=== PATIENT | female | born 1995 | race Two or more races ===

== ENCOUNTER 2016-11-22 05:27 | Emergency (ER) | payer OTHER ==
[2016-11-22 06:22] LABS: APPEARANCE,URINE CLOUDY; BILIRUBIN,URINE NEGATIVE (NEGATIVE); GLUCOSE, URINE NEGATIVE (NEGATIVE); KETONES,URINE NEGATIVE (NEGATIVE); LEUKOCYTE ESTERASE,URINE LARGE (NEGATIVE); NITRITE,URINE NEGATIVE (NEGATIVE); PROTEIN,URINE 100 mg/dL (NEGATIVE); URINE SPECIFIC GRAVITY 1.031
[2016-11-22] MEDS ORDERED: CEFTRIAXONE INJ 1000 MG VIAL IM ONE (06:36)
[2016-11-22] MEDS ORDERED: LIDOCAINE 1% INJ-PF (10 MG/ML) 30 ML SDV INJ ONE (06:36)
[2016-11-22] MEDS ORDERED: DOXYCYCLINE HYCLATE 100 MG TABLET PO ONE (06:37)
--- NOTE | 2016-11-22 06:37 | ER Document Report ---
ED GI/ - General Mode of Arrival: Ambulatory Information source: Patient TRAVEL OUTSIDE OF THE [place] IN LAST 30 DAYS: No - HPI Patient complains to provider of: Dysuria, Vaginal discharge - General Chief Complaint: Pain With Urination Stated Complaint: PAINFUL URINATION Time Seen by Provider: 11/22/16 06:08 Notes: Patient is a 21 year old female who presents to the ED with complaints of burning and pain with urination x1 week. Patient also has thick white discharge that has an odor to it. Patient recently had unprotected intercourse recently. She has been on her menstrual cycle almost daily since May, she has not followed up with her PCP or her OBGYN for this problem. (ARMOND ZABALA) - Related Data Allergies/Adverse Reactions: No Known Allergies Allergy (Unverified 11/22/16 06:13) Past Medical History - General Information source: Patient - Social History Smoking Status: Never Smoker Chew tobacco use (# tins/day): No Frequency of alcohol use: None Drug Abuse: None Family History: Reviewed & Not Pertinent Patient has suicidal ideation: No Patient has homicidal ideation: No Renal/ Medical History: Denies: Hx Peritoneal Dialysis Review of Systems - Review of Systems Constitutional: No symptoms reported EENT: No symptoms reported Cardiovascular: No symptoms reported Respiratory: No symptoms reported Gastrointestinal: No symptoms reported Genitourinary: See HPI, Burning, Dysuria, Pain Female Genitourinary: See HPI, Last menstrual period - continuous since May , Irregular period, Vaginal discharge - white, Vaginal odor - with discharge Musculoskeletal: No symptoms reported Skin: No symptoms reported Hematologic/Lymphatic: No symptoms reported Neurological/Psychological: No symptoms reported Physical Exam - General General appearance: Appears well, Alert In distress: None - HEENT Head: Normocephalic, Atraumatic Eyes: Normal Extraocular movements intact: Yes Pupils: PERRL - Respiratory Respiratory status: No respiratory distress Breath sounds: Normal - Cardiovascular Rhythm: Regular Heart sounds: Normal auscultation Murmur: No - Abdominal Inspection: Normal Distension: No distension Bowel sounds: Normal Tenderness: Tender - superpubic tenderness, some tenderness in RLQ and LLQ. No : Guarding - Back Back: Normal - Extremities General upper extremity: Normal inspection, Normal ROM General lower extremity: Normal inspection, Normal ROM - Neurological Neuro grossly intact: Yes - Psychological Associated symptoms: Normal affect, Normal mood - Skin Skin Temperature: Warm Skin Moisture: Dry Skin Color: Normal - Vital signs Vitals: Temp Pulse Resp BP Pulse Ox 98.7 F 84 16 112/60 96 11/22/16 05:40 11/22/16 05:40 11/22/16 05:40 11/22/16 05:40 11/22/16 05:40 - Vital Signs Vital signs: Temp Pulse Resp BP Pulse Ox 97.5 F 67 18 117/71 97 11/22/16 07:05 11/22/16 07:05 11/22/16 07:05 11/22/16 07:05 11/22/16 07:05 - Laboratory Laboratory results interpreted by me: 11/22/16 05:50 Urine Protein 100 H Urine Blood LARGE H Urine Urobilinogen 2.0 H Ur Leukocyte Esterase LARGE H Discharge - Discharge Clinical Impression: Pelvic pain Urinary tract infection Qualifiers: Urinary tract infection type: acute cystitis Hematuria presence: with hematuria Qualified Code(s): N30.01 - Acute cystitis with hematuria Condition: Stable Disposition: HOME, SELF-CARE Additional Instructions: Urinary Tract Infection: Your evaluation indicates that you have a urinary tract infection. This is due to germs growing in the bladder. This is a common problem. This infection usually responds quickly to antibiotics. Your antibiotic should be taken exactly as prescribed. Drink plenty of fluids -- three to four quarts a day. Occasionally, a bladder anesthetic will be prescribed to help stop the feeling of urgency until the antibiotic has a chance to clear the infection. This may cause your urine to be dark orange. Certain urine infections require a culture. If the doctor obtained a culture, the results will be back in two days. You should call to see if a change in treatment is needed. A repeat urinalysis after you finish treatment is often recommended. The physician will let you know if further testing is required. Call the doctor if you develop fever, chills, flank pain, inability to urinate, or blood in the urine. Pelvic Pain: There are many causes of pain in the pelvic area. The cause could be the tubes, ovaries, uterus, intestines, appendix, pelvic muscles and connective tissue, or the urinary tract. The cause of your pelvic pain is not clear. However, it seems safe to treat you outside the hospital. If the pain sounds like a temporary problem, we sometimes wait to see if it goes away. Other patients may need additional tests, such as pelvic ultrasound or cultures. Conditions may change. Call us or come back for reexamination if any problems occur, such as: (1) Pain that becomes more severe, steady, or becomes concentrated in one specific area. Also, pain that is more severe with movement or coughing. (2) Vomiting that persists or becomes more frequent. (3) Blood in the vomitus, urine, or bowel movements. Blood in the stool may have a tarry or black appearance. (4) Shaking chills or fever greater than 100 degrees. (5) The abdomen becomes more distended or swollen. (6) Bowel movements cease. (7) Heavy vaginal bleeding. TAKE THE MEDICATION PRESCRIBED. DRINK PLENTY OF FLUIDS. TAKE MOTRIN OR ALEVE FOR PAIN. FOLLOW UP WITH A LOCAL OB-PROSPECTING DRILLER HELPER DOCTOR IF NOT IMPROVING. RETURN TO THE EMERGENCY ROOM IF ANY NEW OR WORSENING SYMPTOMS. Prescriptions: Doxycycline Hyclate 100 mg PO BID #14 tablet Scribe Attestation: 11/22/16 06:40 I personally performed the services described in the documentation, reviewed and edited the documentation which was dictated to the scribe in my presence, and it accurately records my words and actions. (KD FABIAN) Scribe Documentation - Scribe Written by Calvin:: calvin Knowles, 11/22/2016, 0642 acting as scribe for :: Eda
[2016-11-22 07:08] VITALS: BP 117/71
[2016-11-22 08:14] LABS: CHLAM PCR NOT DETECTED (NOT DETECT)
== END 2016-11-22 07:08 | disposition home or self-care (01) ==
LOC: ER 05:27
DX: N30.01 Acute cystitis with hematuria (principal); N89.8 Other specified noninflammatory disorders of vagina; N92.1 Excessive and frequent menstruation with irregular cycle
CPT/HCPCS: 99283; 96372; 81025; 81001; 87491; 87591; J3490; J0696

== ENCOUNTER 2017-07-11 15:55 | Emergency (ER) | payer MEDICAID ==
[2017-07-11 16:05] VITALS: BP 124/67
[2017-07-11] MEDS ORDERED: ACETAMINOPHEN 325 MG TABLET PO ONE (16:18)
[2017-07-11] MEDS ORDERED: ALBUTEROL SULFATE 0.083% NEB 2.5 MG/3 ML AMPUL NEB ONE (16:18)
--- NOTE | 2017-07-11 16:23 | ER Document Report ---
HPI - HPI Pain Level: 4 Context: Patient is a 22-year-old female presents emergency department complaining of sinus drainage, sore throat nonproductive cough. States this is been going on for the past couple days. She admits to taking ofuz-hci-ncgwdaf Mucinex and Tylenol. She denies any previous history of seasonal allergies. She also states that she is new to this area. She otherwise denies any fevers, chills, difficulty swallowing, difficulty breathing, productive cough, shortness breath , dyspnea on exertion. Past Medical History - Social History Smoking Status: Never Smoker Family History: Reviewed & Not Pertinent Renal/ Medical History: Denies: Hx Peritoneal Dialysis Vertical Provider Document - CONSTITUTIONAL Agree With Documented VS: Yes Notes: PHYSICAL EXAM GENERAL: Alert, interacts well. HEENT: NCAT, pale conjunctiva, extraocular movements intact, pupils PERRL. external ear normal, no evidence of external auditory canal tenderness, blood/ drainage, cerumen impaction, TM intact without evidence of effusion, bulging, injection, MMM, Uvula midline. Airway patent. No evidence of tonsillar enlargement, peritonsillar abscess, retropharyngeal abscess. NECK: Full range of motion. Supple. Trachea midline. LUNGS: Clear to auscultation bilaterally, no wheezes, rales, or rhonchi. No respiratory distress. HEART: Regular rate and rhythm. No murmurs, gallops, or rubs. ABDOMEN: Soft, nondistended, nontender. No guarding, rebound, or rigidity.. Bowel sounds present in all 4 quadrants. EXTREMITIES: Moves all 4 extremities spontaneously. No edema, radial and dorsalis pedis pulses 2/4 bilaterally. No cyanosis. NEUROLOGICAL: Alert and oriented x4. Normal speech. PSYCH: Normal affect, normal mood. SKIN: Warm, dry, normal turgor. No rashes or lesions noted. - INFECTION CONTROL TRAVEL OUTSIDE OF THE [place] IN LAST 30 DAYS: No Course - Re-evaluation Re-evalutation: 07/11/17 16:19 Patient is a 22-year-old female is hemodynamically stable, no acute distress afebrile. Presentation is consistent with a postnasal drip either related to hayfever, allergic rhinitis. Physical exam benign without any concerns for underlying strep pharyngitis, peritonsillar retropharyngeal abscess, PE. Discussed with her to take rzlf-svl-[id number] antihistamines, utilizing nasal sprays and decongestants. Discussed with her strict return precautions otherwise stable for discharge home and to follow-up with primary care. - Vital Signs Vital signs: Temp Pulse Resp BP Pulse Ox 97.8 F 71 16 124/67 98 07/11/17 16:03 07/11/17 16:03 07/11/17 16:03 07/11/17 16:03 07/11/17 16:03 Discharge - Discharge Clinical Impression: Post-nasal drip Reactive airway disease Qualifiers: Asthma severity: mild Asthma persistence: intermittent Asthma complication type : uncomplicated Qualified Code(s): J45.20 - Mild intermittent asthma, uncomplicated Condition: Good Disposition: HOME, SELF-CARE Additional Instructions: You can take ucqg-mrt-[id number] Afrin as a nasal spray to help with nasal secretions. You can also take pseudophedrine to help with the nasal congestion. Lastly, please starta daily antihistamine such as Claritin or zina which is available okhb-anf-ssbysba Hay Fever You have hay fever. This is an allergic reaction to pollens or dusts. Symptoms include sneezing, nasal congestion, and swelling and itching of the eyes. About 10 percent of people suffer from hay fever. The best treatment is to avoid the substance you're allergic to, if possible. If that's not possible, take antihistamines to decrease watering of the eyes and nose. A decongestant nasal spray may help you breathe better at night, but should not be used for more than three days. If the eyes are severely involved, an anti-histamine eyedrop may be required. Allergy shots (desensitization) may be necessary if symptoms are prolonged or severe. Cortisone is best avoided, but may be necessary if the symptoms do not respond to the usual measures. You should call the doctor or return for re-examination if sinus pain or pressure, fever, severe headache, or purulent drainage develop. Reactive Airway Disease You have "reactive airway disease." This means that your bronchial tubes constrict (narrow) or secrete extra mucous as a reaction to something that irritates them. The airway's reaction can cause shortness of breath, wheezing, or coughing. With reactive airway disease, your lungs can react to respiratory infections, allergic reactions, or inhaled dust, smoke, chemicals, or even cold air. Asthma is one type of reactive airway disease. Emergency treatment of bronchospasm may include adrenaline shots or bronchodilator aerosol. If we used these medicines to treat you, you may feel lightheaded and have a rapid pulse for an hour or two. Rest and get plenty of fluids. At home, we'll treat you with a bronchodilator inhaler. Antibiotics and corticosteroids may be required for some patients. Until you recover, avoid chemical fumes, dusts, pollens, and exercising in very cold or dry air. If you smoke, stop now!! If you develop a fever, increased wheezing, chest pain, or severe shortness of breath, you should contact your doctor immediately. Prescriptions: Albuterol Sulfate [Proair HFA Inhalation Aerosol 8.5 gm MDI] 2 puff IH Q4H PRN # 1 mdi PRN Reason: Referrals: THANIA JENNINGS MD [ACTIVE STAFF] - Follow up as needed
== END 2017-07-11 16:53 | disposition home or self-care (01) ==
LOC: ER 15:55
DX: R09.82 Postnasal drip (principal); J45.20 Mild intermittent asthma, uncomplicated; J02.9 Acute pharyngitis, unspecified; R05 Cough
CPT/HCPCS: 94640; 99282

== ENCOUNTER 2018-03-16 14:58 | Observation (INO) | payer SELFPAY ==
--- NOTE | 2018-03-16 16:01 | ER Document Report ---
ED Medical Screen (RME) - General Chief Complaint: Abdominal Pain Stated Complaint: ABDOMINAL PAIN Time Seen by Provider: 03/16/18 15:53 TRAVEL OUTSIDE OF THE [place] IN LAST 30 DAYS: No - HPI Notes: 03/16/18 16:01 Right upper quadrant epigastric pain going into her back since last night - Related Data Allergies/Adverse Reactions: No Known Allergies Allergy (Verified 07/11/17 15:56) Past Medical History Renal/ Medical History: Denies: Hx Peritoneal Dialysis GI Medical History: Reports: Hx Gastroesophageal Reflux Disease Review of Systems - Review of Systems Gastrointestinal: Abdominal pain -: Yes All other systems reviewed and negative Physical Exam - Vital signs Vitals: Temp Pulse Resp BP Pulse Ox 97.8 F 81 18 127/64 H 98 03/16/18 15:03 03/16/18 15:03 03/16/18 15:03 03/16/18 15:03 03/16/18 15:03 - Respiratory Respiratory status: No respiratory distress Chest status: Nontender Breath sounds: Normal Chest palpation: Normal - Cardiovascular Rhythm: Regular Heart sounds: Normal auscultation Course - Vital Signs Vital signs: Temp Pulse Resp BP Pulse Ox 97.8 F 81 18 127/64 H 98 03/16/18 15:03 03/16/18 15:03 03/16/18 15:03 03/16/18 15:03 03/16/18 15:03 Doctor's Discharge - Discharge Referrals: DONALD RIVERA APRN [Primary Care Provider] - Follow up as needed
[2018-03-16] MEDS ORDERED: NORMAL SALINE 1000 ML 1,000 ML IV ONE (16:02)
[2018-03-16 16:42] LABS: APPEARANCE,URINE SLIGHTLY-CLOUDY; BILIRUBIN,URINE NEGATIVE (NEGATIVE); COLOR,URINE YELLOW; GLUCOSE, URINE NEGATIVE (NEGATIVE); KETONES,URINE TRACE mg/dL (NEGATIVE); LEUKOCYTE ESTERASE,URINE TRACE (NEGATIVE); NITRITE,URINE NEGATIVE (NEGATIVE); PROTEIN,URINE NEGATIVE (NEGATIVE)
[2018-03-16 16:43] LABS: ABSOLUTE EOSINOPHILS # (AUTO) 0.3 10^3/uL (0.0-0.6); ABSOLUTE LYMPHOCYTES (AUTO) 1.2 10^3/uL (0.5-4.7); ABSOLUTE MONOCYTES (AUTO) 0.7 10^3/uL (0.1-1.4); ABSOLUTE NEUT (AUTO) 7.7 10^3/uL (1.7-8.2); BASOPHILS % (AUTO) 0.4 % (0-2); EOSINOPHILS % (AUTO) 3.2 % (0-6); HEMATOCRIT 42.5 % (36.0-47.0); HEMOGLOBIN 14.6 g/dL (12.0-15.5); LYMPHOCYTES % (AUTO) 12.5 % (13-45); MEAN CORPUSCULAR HEMOGLOBIN 30.8 pg (27.0-33.4); MEAN CORPUSCULAR HGB CONC 34.5 g/dL (32.0-36.0); MEAN CORPUSCULAR VOLUME 89 fl (80-97); MONOCYTES % (AUTO) 6.6 % (3-13); PLATELET COUNT 300 10^3/uL (150-450); RED BLOOD COUNT 4.75 10^6/uL (3.72-5.28); RED CELL DISTRIBUTION WIDTH 12.9 % (11.5-14.0); SEGMENTED NEUTROPHILS % (AUTO) 77.3 % (42-78); TOTAL CELLS COUNTED % (AUTO) 100 %; WHITE BLOOD COUNT 9.9 10^3/uL (4.0-10.5)
--- NOTE | 2018-03-16 16:48 | RADIOLOGY REPORT (SQ) ---
EXAM DESCRIPTION: U/S ABDOMEN LIMITED W/O DOP COMPLETED DATE/TIME: 03/16/2018 4:40 pm REASON FOR STUDY: abd pain COMPARISON: None. TECHNIQUE: Dynamic and static grayscale images acquired of the abdomen and recorded on PACS. Additio jason selected color Doppler and spectral images recorded. LIMITATIONS: None. FINDINGS: PANCREAS: Not visualized LIVER: No masses. Echotexture normal. LIVER VASCULATURE: Normal directional flow of the main portal vein and hepatic veins. GALLBLADDER: Multiple gallstones. No pericholecystic fluid. ULTRASOUND-DETECTED COLEY'S SIGN: Positive. INTRAHEPATIC DUCTS AND COMMON DUCT: Mild dilatation of the intra and extra hepatic biliary tree. INFERIOR VENA CAVA: Normal flow. AORTA: Not visualized RIGHT KIDNEY: Normal size. Normal echogenicity. No solid or suspicious masses. No hydronephrosis. No calcifications. PERITONEAL AND RIGHT PLEURAL SPACE: No ascites or effusions. OTHER: No other significant findings. IMPRESSION: Cholelithiasis. Positive sonographic Coley's sign. Mild dilatation of the intra and e xtra hepatic biliary tree raising the question of common duct partial obstruction. TECHNICAL DOCUMENTATION: JOB ID: [id number] [employer]- All Rights Reserved Reading location - IP/workstation name: [email or web address]
[2018-03-16 16:57] LABS: ALANINE AMINOTRANSFERASE 80 U/L (9-52); ALBUMIN 4.4 g/dL (3.5-5.0); ALKALINE PHOSPHATASE 69 U/L (38-126); ANION GAP 14 (5-19); ASPARTATE AMINO TRANSFERASE 129 U/L (14-36); BILIRUBIN,DIRECT 0.5 mg/dL (0.0-0.4); BILIRUBIN,TOTAL 0.9 mg/dL (0.2-1.3); BLOOD UREA NITROGEN 11 mg/dL (7-20); CALCIUM 9.1 mg/dL (8.4-10.2); CARBON DIOXIDE 28 mmol/L (22-30); CHLORIDE 101 mmol/L (98-107); GLUCOSE 88 mg/dL (75-110); SODIUM 142.9 mmol/L (137-145); TOTAL PROTEIN 7.2 g/dL (6.3-8.2)
[2018-03-16] MEDS ORDERED: RINGERS SOLUTION,LACTATED 1,000 ML IV PRN (17:10)
[2018-03-16] MEDS ORDERED: METOCLOPRAMIDE HCL INJ/PF 10 MG/2 ML SDV IV ONE (17:17)
--- NOTE | 2018-03-16 17:30 | ER Document Report ---
ED GI/ - General Chief Complaint: Abdominal Pain Stated Complaint: ABDOMINAL PAIN Time Seen by Provider: 03/16/18 15:53 Mode of Arrival: Ambulatory Information source: Patient Notes: Patient is a 22-year-old female comes emergency room complaining of abdominal chest and back pain. Patient states that this is been going on for approximately 2 months on and off. She does make an association a lot of times when she eats but occasionally it is not associated. She states that she has done her that she can to avoid coming to the hospital because she does not want to be here. She states that she ate some chicken Fran last night at approximately 1 hour after ingestion she had the worst pain she is ever experienced it would started on the right upper quadrant radiated to her back and then across her chest. She states she could not find a position of comfort she walked back and forth and rocked and finally she thought if she went to sleep maybe it would go away. When she woke up this morning the pain was back. She last ate around 11 AM this morning. That consisted of a bowl of chili and a cup of coffee.. She denies any fevers she has been nauseated but no vomiting. She denies any history of diabetes or hypertension TRAVEL OUTSIDE OF THE [place] IN LAST 30 DAYS: No - HPI Patient complains to provider of: Abdominal pain Onset: Other - On and off for 2 months worse since yesterday Timing/Duration: Sudden, Persistent, Worse Quality of pain: Pressure, Sharp, Throbbing Severity at maximum: Severe Severity in ED: Moderate Pain Level: 4 Location: Chest pain, Epigastric, RUQ, Other - Right scapular border Adult Front & Back Diagram: 1 - Greatest area of discomfort and pain 2 - Diffuse area of discomfort and pain 3 - Posterior area of discomfort and pain Vaginal bleeding (Compared to normal period): None LMP: February 26, 2018 : 0 Sexual history: Active Associated symptoms: Chest pain, Nausea, Radiates to back Exacerbated by: Food Relieved by: Denies Similar symptoms previously: Yes Recently seen / treated by doctor: No - Related Data Allergies/Adverse Reactions: No Known Allergies Allergy (Verified 07/11/17 15:56) Past Medical History - General Information source: Patient - Social History Smoking Status: Never Smoker Cigarette use (# per day): No Chew tobacco use (# tins/day): No Smoking Education Provided: No Frequency of alcohol use: None Drug Abuse: None Lives with: Family Family History: Reviewed & Not Pertinent Patient has suicidal ideation: No Patient has homicidal ideation: No Renal/ Medical History: Denies: Hx Peritoneal Dialysis GI Medical History: Reports: Hx Gastroesophageal Reflux Disease Review of Systems - Review of Systems Constitutional: No symptoms reported EENT: No symptoms reported Cardiovascular: See HPI, Chest pain Respiratory: No symptoms reported Gastrointestinal: See HPI, Abdominal pain, Nausea Genitourinary: No symptoms reported Female Genitourinary: No symptoms reported Musculoskeletal: No symptoms reported Skin: No symptoms reported Hematologic/Lymphatic: No symptoms reported Neurological/Psychological: No symptoms reported -: Yes All other systems reviewed and negative Physical Exam - Vital signs Vitals: Temp Pulse Resp BP Pulse Ox 97.8 F 81 18 127/64 H 98 03/16/18 15:03 03/16/18 15:03 03/16/18 15:03 03/16/18 15:03 03/16/18 15:03 Interpretation: Normal - Notes Notes: PHYSICAL EXAMINATION: GENERAL: Patient is a well-nourished well-developed obese female who is in no distress but does appear somewhat uncomfortable. HEAD: Atraumatic, normocephalic. EYES: Pupils equal round and reactive to light, extraocular movements intact, conjunctiva are normal. ENT: Nares patent, oropharynx clear without exudates. Moist mucous membranes. NECK: Normal range of motion, supple without lymphadenopathy LUNGS: Breath sounds clear to auscultation bilaterally and equal. No wheezes rales or rhonchi. HEART: Regular rate and rhythm without murmurs ABDOMEN: Examination patient's abdomen shows she has bowel sounds in all 4 quads. She has moderate tenderness in right upper quadrant positive Coley sign with inspiration. Mild midepigastric tenderness to palpation. No flank tenderness noted. Female : deferred Musculoskeletal: Normal range of motion, no pitting or edema. No cyanosis. NEUROLOGICAL: Normal speech, normal gait. Normal sensory, motor exams PSYCH: Normal mood, normal affect. SKIN: Warm, Dry, normal turgor, no rashes or lesions noted. Course - Re-evaluation Re-evalutation: 03/16/18 17:59 Patient's ultrasound came back showing that she had cholelithiasis. Positive sonographic Coley sign. Mild dilatation of the intra-and extrahepatic biliary tree raising the question of common duct partial obstruction. I contacted Dr. Escobedo the surgeon stoneworking sander today. Gave him the story and he has accepted admission of the patient where to keep her n.p.o. give her a milligram of Dilaudid and he will admit her and do gallbladder surgery tomorrow. - Vital Signs Vital signs: Temp Pulse Resp BP Pulse Ox 97.9 F 65 16 96/52 L 99 03/17/18 00:11 03/17/18 00:11 03/17/18 00:11 03/17/18 00:11 03/17/18 00:11 - Laboratory Result Diagrams: 03/16/18 16:23 03/16/18 16:23 Laboratory results interpreted by me: 03/16/18 03/16/18 03/16/18 16:23 16:23 16:23 Lymphocytes % 12.5 L Creatinine 0.49 L Direct Bilirubin 0.5 H AST 129 H ALT 80 H Urine Ketones TRACE H Urine Urobilinogen 4.0 H Ur Leukocyte Esterase TRACE H Discharge - Discharge Clinical Impression: Cholelithiasis Qualifiers: Cholelithiasis location: gallbladder Cholecystitis presence: with cholecystitis Cholecystitis acuity: acute Biliary obstruction: with biliary obstruction Qualified Code(s): K80.01 - Calculus of gallbladder with acute cholecystitis with obstruction Condition: Stable Disposition: ADMITTED OBSERVATION Admitting Provider: Surgicalist Unit Admitted: Surgical Floor
[2018-03-16] MEDS ORDERED: ONDANSETRON HCL INJ/PF 4 MG/2 ML SDV IV ONE (18:01)
[2018-03-16] MEDS ORDERED: HYDROMORPHONE HCL INJ/PF 2 MG/ML AMPULE IV ONE (18:02)
--- NOTE | 2018-03-16 19:24 | PDOC H&P ---
History of Present Illness Admission Date/PCP: 03/16/18 18:14 Patient complains of: abdominal pains History of Present Illness: TYSHAWN OLIVER is a 22 year old female who had a fatty meal for lunch followed an hour later of epigastric and RUQ pains radiating to the back with nausea. Denies fever/chills. Had the same episode about 2 months ago but only had pains transiently. 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[place], [place] and lost over 100 lbs Social History Lives with: Family Smoking Status: Never Smoker Family History Family History: Reviewed & Not Pertinent Parental Family History Reviewed: Yes Children Family History Reviewed: No Sibling(s) Family History Reviewed.: No Medication/Allergy Home Medications: Doxycycline Hyclate 100 mg PO BID #14 tablet 11/22/16 Albuterol Sulfate [Proair HFA Inhalation Aerosol 8.5 gm MDI] 2 puff IH Q4H PRN # 1 mdi 07/11/17 Allergies/Adverse Reactions: No Known Allergies Allergy (Verified 07/11/17 15:56) Review of Systems Constitutional: PRESENT: as per HPI Eyes: PRESENT: other - no visual/hearing changes Cardiovascular: PRESENT: other - no chest pains/cough Gastrointestinal: PRESENT: abdominal pain, nausea Genitourinary: PRESENT: other - no dysuria Neurological: PRESENT: other - no seizures Physical Exam Vital Signs: Temp Pulse Resp BP Pulse Ox 98.6 F 79 16 125/66 100 03/16/18 18:14 03/16/18 18:14 03/16/18 18:14 03/16/18 18:14 03/16/18 18:14 Results Impressions: Abdomen Ultrasound 03/16/18 16:00 IMPRESSION: Cholelithiasis. Positive sonographic Coley's sign. Mild dilatation of the intra and extra hepatic biliary tree raising the question of common duct partial obstruction.
[2018-03-16] MEDS ORDERED: ONDANSETRON HCL INJ/PF 4 MG/2 ML SDV IV PRN (19:25)
[2018-03-16] MEDS ORDERED: HYDROMORPHONE HCL INJ/PF 2 MG/ML AMPULE IV PRN (19:34)
[2018-03-16] MEDS: CIPROFLOXACIN 400 MG/D5W RTU 400 MG/200 ML RTUPB IV SCH (21:51)
[2018-03-17] MEDS: NORMAL SALINE 1000 ML 1,000 ML IV PRN ×3 (00:07→16:12)
[2018-03-17] MEDS: METRONIDAZOLE 500 MG/NS RTU 500 MG/100 ML RTUPB IV SCH ×5 (00:07→23:03)
[2018-03-17 07:25] LABS: ABSOLUTE EOSINOPHILS # (AUTO) 0.2 10^3/uL (0.0-0.6); ABSOLUTE LYMPHOCYTES (AUTO) 1.6 10^3/uL (0.5-4.7); ABSOLUTE MONOCYTES (AUTO) 0.5 10^3/uL (0.1-1.4); ABSOLUTE NEUT (AUTO) 3.7 10^3/uL (1.7-8.2); BASOPHILS % (AUTO) 0.5 % (0-2); EOSINOPHILS % (AUTO) 4.1 % (0-6); HEMATOCRIT 35.5 % (36.0-47.0); LYMPHOCYTES % (AUTO) 25.8 % (13-45); MEAN CORPUSCULAR HEMOGLOBIN 30.1 pg (27.0-33.4); MEAN CORPUSCULAR HGB CONC 33.8 g/dL (32.0-36.0); MEAN CORPUSCULAR VOLUME 89 fl (80-97); MONOCYTES % (AUTO) 8.1 % (3-13); PLATELET COUNT 209 10^3/uL (150-450); RED BLOOD COUNT 3.99 10^6/uL (3.72-5.28); SEGMENTED NEUTROPHILS % (AUTO) 61.5 % (42-78); TOTAL CELLS COUNTED % (AUTO) 100 %
[2018-03-17 07:45] LABS: ALANINE AMINOTRANSFERASE 115 U/L (9-52); ALKALINE PHOSPHATASE 57 U/L (38-126); ANION GAP 12 (5-19); ASPARTATE AMINO TRANSFERASE 74 U/L (14-36); BILIRUBIN,DIRECT 0.1 mg/dL (0.0-0.4); BILIRUBIN,TOTAL 0.6 mg/dL (0.2-1.3); BLOOD UREA NITROGEN 9 mg/dL (7-20); CALCIUM 8.2 mg/dL (8.4-10.2); CARBON DIOXIDE 25 mmol/L (22-30); CHLORIDE 105 mmol/L (98-107); GLUCOSE 80 mg/dL (75-110); POTASSIUM 3.7 mmol/L (3.6-5.0); TOTAL PROTEIN 5.4 g/dL (6.3-8.2)
[2018-03-17] MEDS ORDERED: BUPIVACAINE HCL 0.25 % INJ/PF (2.5 MG/1 ML) 30 ML VIAL ONE (08:12)
--- NOTE | 2018-03-17 09:00 | PDOC PROGRESS REPORT ---
Subjective Subjective:: Minimal pain Reason For Visit: CHOLELITHIASIS, ACUTE CHOLECYSTITIS Physical Exam Vital Signs: Temp Pulse Resp BP Pulse Ox 97.9 F 59 L 16 110/60 98 03/17/18 07:50 03/17/18 07:50 03/17/18 07:50 03/17/18 07:50 03/17/18 07:50 Intake & Output 03/16/18 03/17/18 03/18/18 06:59 06:59 06:59 Intake Total 300 Balance 300 Weight 102.1 kg General appearance: PRESENT: no acute distress GI/Abdominal exam: PRESENT: tenderness - Right upper quadrant to deep palpation. No peritoneal signs Results Laboratory Results: 03/17/18 06:35 03/17/18 06:35 03/17/18 03/17/18 06:35 06:35 WBC 6.0 RBC 3.99 Hgb 12.0 D Hct 35.5 L MCV 89 MCH 30.1 MCHC 33.8 RDW 13.0 Plt Count 209 Seg Neutrophils % 61.5 Lymphocytes % 25.8 Monocytes % 8.1 Eosinophils % 4.1 Basophils % 0.5 Absolute Neutrophils 3.7 Absolute Lymphocytes 1.6 Absolute Monocytes 0.5 Absolute Eosinophils 0.2 Absolute Basophils 0.0 Sodium 142.0 Potassium 3.7 Chloride 105 Carbon Dioxide 25 Anion Gap 12 BUN 9 Creatinine 0.52 Est GFR ( Amer) > 60 Est GFR (Non-Af Amer) > 60 Glucose 80 Calcium 8.2 L Total Bilirubin 0.6 AST 74 H ALT 115 H Alkaline Phosphatase 57 Total Protein 5.4 L Albumin 3.0 L Lipase 48.0 Impressions: Abdomen Ultrasound 03/16/18 16:00 IMPRESSION: Cholelithiasis. Positive sonographic Coley's sign. Mild dilatation of the intra and extra hepatic biliary tree raising the question of common duct partial obstruction. Assessment & Plan - Diagnosis (1) Cholelithiasis Qualifiers: Cholelithiasis location: gallbladder Cholecystitis presence: with cholecystitis Cholecystitis acuity: acute Biliary obstruction: with biliary obstruction Qualified Code(s): K80.01 - Calculus of gallbladder with acute cholecystitis with obstruction Is this a current diagnosis for this admission?: Yes Plan: Impression: Symptomatic cholelithiasis with cholecystitis Recommendations 1. Proceed with laparoscopic, possible open cholecystectomy, 1 hour, [facility], intraoperative cholangiography; risk benefits alternatives explained to the patient including bleeding, infection, bile duct injury and bile leak. Patient expresses her understanding and agrees to proceed.
[2018-03-17] MEDS: CIPROFLOXACIN 400 MG/D5W RTU 400 MG/200 ML RTUPB IV SCH ×2 (10:03→21:24)
[2018-03-17] MEDS ORDERED: FENTANYL CITRATE INJ/PF 100 MCG/2 ML AMPUL ONE (10:23)
[2018-03-17] MEDS ORDERED: MIDAZOLAM 2 MG/2 ML INJ ONE (10:23)
[2018-03-17] MEDS ORDERED: DEXAMETHASONE SOD PHOSPHATE INJ 4 MG/1 ML VIAL ONE (10:24)
[2018-03-17] MEDS ORDERED: ACETAMINOPHEN 1,000 MG/100 ML RTUPB IV ONE (10:24)
[2018-03-17] MEDS ORDERED: PROPOFOL INJ 200 MG/20 ML VIAL IV ONE (10:24)
[2018-03-17] MEDS ORDERED: ONDANSETRON HCL INJ/PF 4 MG/2 ML SDV ONE (10:24)
[2018-03-17] MEDS ORDERED: BUPIVACAINE HCL 0.25 % INJ/PF (2.5 MG/1 ML) 30 ML VIAL INJ ONE (10:54)
[2018-03-17] MEDS ORDERED: PROMETHAZINE HCL INJ 25 MG/1 ML VIAL IV PRN ×2 (11:08)
[2018-03-17] MEDS ORDERED: FENTANYL CITRATE INJ/PF 100 MCG/2 ML AMPUL IV PRN ×3 (11:08)
[2018-03-17] MEDS ORDERED: MORPHINE SULFATE 10 MG/ML INJ IV PRN (11:08)
[2018-03-17] MEDS ORDERED: DIPHENHYDRAMINE HCL 50 MG/ML VIAL IV PRN (11:08)
[2018-03-17] MEDS ORDERED: ONDANSETRON HCL INJ/PF 4 MG/2 ML SDV IV PRN (11:08)
[2018-03-17] MEDS ORDERED: MEPERIDINE HCL/PF INJ 25 MG/1 ML DISP.SYRIN IV PRN (11:08)
[2018-03-17] MEDS ORDERED: KETOROLAC TROMETHAMINE INJ/PF 30 MG/1 ML SDV IV PRN (12:01)
[2018-03-17] MEDS ORDERED: OXYCODONE-ACETAMINOPHEN 5-325 MG TABLET PO PRN (12:01)
[2018-03-17] MEDS ORDERED: KETOROLAC TROMETHAMINE 10 MG TABLET PO PRN (12:01)
--- NOTE | 2018-03-17 12:09 | Operative Report ---
Operative Report DATE OF SURGERY: 03/17/18 PREOPERATIVE DIAGNOSIS: Symptomatic cholelithiasis with cholecystitis POSTOPERATIVE DIAGNOSIS: Same with acute cholecystitis OPERATION: Laparoscopic lysis of adhesions with LigaSure device; laparoscopic cholecystectomy SURGEON: JAJA NG ANESTHESIA: GA TISSUE REMOVED OR ALTERED: 1 gallbladder with contents COMPLICATIONS: None ESTIMATED BLOOD LOSS: Minimal INTRAOPERATIVE FINDINGS: See below PROCEDURE: After obtaining informed consent, the patient was taken to the operating room. General Anesthesia was induced; the arms were extended, and the abdomen was exposed, and prepped and draped in a sterile fashion. Instrumentation was set up for laparoscopic cholecystectomy. Surgical plan and surgical timeout were conducted. A vertical incision was made above the umbilicus, and multiple attempts were made to insert a Veress needle but due to significant scarring this approach was aborted. Right upper quadrant stab was made with a knife, and a Veress needle inserted, pneumoperitoneum established and 5 mm trocar was inserted and a 5 mm flexible laparoscope was inserted. Visualization of the peritoneal cavity confirmed safe uneventful entry. Under direct visualization 3 additional 5 mm ports were established, one in the subxiphoid position and second in the subcostal position and the final port in the supraumbilical position. Visualization of the hepatobiliary anatomy revealed dense adhesions between the gallbladder, liver right lobe, and transverse colon. We used the hand-held LigaSure device to take down extensive adhesions which proceeded over approximately [id number].. A grasper was placed on the fundus of the gallbladder and the gallbladder is elevated over the right surface of the liver; a second grasper was used to grasp the infundibulum of the gallbladder. Again there were dense adhesions in this area. The neck of the gallbladder and junction with the cystic duct was dissected out. Because of the redundancy of the gallbladder, a hole made in the side of the gallbladder with spillage of stones, I felt that a top down approach would help facilitate the dissection. This was affected by rearranging the positioning of the graspers, taking the gallbladder all the way off the inferior surface of the liver. The cystic artery was transected, then subsequently clipped proximally. It was very diminutive. Critical view was obtained as the gallbladder was now suspended solely from the cystic duct. Photos were obtained; the cystic duct was clipped once proximally , opened, and milked of any stones. There were none. The cystic duct was secured with 3 clips and then divided completely. The gallbladder was placed in an Endobag and brought out of the patient along with multiple spilled stones. We returned to the peritoneal cavity and irrigated out residual bile and small stones. The specimen was examined, then passed off to pathology for permanent analysis. We returned to the peritoneal cavity check for bleeding, and evidence of bile leak, and there was none. We Confirmed satisfactory placement of clips on cystic duct and cystic artery were secured . At this point we felt the operation was complete. The subcutaneous tissue was then anesthetized with quarter percent Marcaine Sponge and needle counts are correct. All ports removed under direct visualization pneumoperitoneum evacuated, and 5 mm port wounds closed with 3-0 Vicryl suture, benzoin and Steri-Strips. The patient was extubated, and taken to the recovery room in stable condition.
[2018-03-17] MEDS ORDERED: SUGAMMADEX SODIUM 200 MG/2 ML SDV IV ONE (12:12)
[2018-03-17] MEDS: FENTANYL CITRATE INJ/PF 100 MCG/2 ML AMPUL ONE ×3 (12:17→12:27)
[2018-03-17] MEDS ORDERED: VECURONIUM BROMIDE INJ 10 MG VIAL IV ONE (13:57)
[2018-03-17] MEDS ORDERED: SUCCINYLCHOLINE CHLORIDE INJ 200 MG/10 ML VIAL ONE (13:57)
[2018-03-17] MEDS ORDERED: DOCUSATE SODIUM 100 MG CAPSULE PO SCH (18:00)
[2018-03-18] MEDS: NORMAL SALINE 1000 ML 1,000 ML IV PRN (02:19)
[2018-03-18] MEDS: METRONIDAZOLE 500 MG/NS RTU 500 MG/100 ML RTUPB IV SCH (05:15)
[2018-03-18 08:45] VITALS: BP 125/66
--- NOTE | 2018-03-19 08:37 | DISCHARGE SUMMARY E ---
Discharge Summary NAME: TYSHAWN OLIVER : 1995 AGE: 22Y ADMITTED: 03/16/2018 DISCHARGED: 03/18/2018 FINAL DIAGNOSIS: Acute cholecystitis and cholelithiasis. PROCEDURE DONE: 03/17/2018, laparoscopic cholecystectomy. SURGEON: Alek Echevarria MD HOSPITAL COURSE: This is a 22-year-old female with right upper quadrant pains just prior to being seen in the emergency room. She had an ultrasound of the gallbladder which showed gallstones and acute cholecystitis. Patient then underwent laparoscopic cholecystectomy on 03/17/2018. Postoperatively patient did very well and discharge improved on 03/18/2018 to be followed up in the surgical clinic in 2 weeks. No prescription was given. Patient can take Motrin [id number] q. 4 hours p.r.n. as needed for pain. DICTATING PHYSICIAN: RUSSEL PALOMO M.D. [id number] PHY#: [id number] ID: [id number] JOB#: [id number] ACCT: [id number] cc:RUSSEL PALOMO M.D. >
== END 2018-03-18 10:30 | disposition home or self-care (01) ==
LOC: ER 14:58 → EH 18:14 → 2N 20:25
PROVIDERS: ADMIT Surgery; ATTEND Surgery
PROC: 0DNL4ZZ Release Transverse Colon, Percutaneous Endoscopic Approach (ICD-10-PCS; 2018-03-17)
PROC: 0FN14ZZ Release Right Lobe Liver, Percutaneous Endoscopic Approach (ICD-10-PCS; 2018-03-17)
PROC: 0FT44ZZ Resection of Gallbladder, Percutaneous Endoscopic Approach (ICD-10-PCS; principal; 2018-03-17 11:00)
DX: K80.12 Calculus of gallbladder with acute and chronic cholecystitis without obstruction (principal); K66.0 Peritoneal adhesions (postprocedural) (postinfection); Z90.3 Acquired absence of stomach [part of]
CPT/HCPCS: 99285; 96361; 96374; 96375; 36415 ×2; 87040; 84702; 83690 ×2; 85025 ×2; 80053 ×2; 81001; 88304 ×2; 76705; 47562; J2250; J1100; J3010; J3490 ×3; J1885; J2765; J1170; J0330; J2405 ×2; J7030 ×3; J7120; J2704; J0744 ×2; J0131; 790